=== PATIENT | female | born 1965 | race Caucasian/White ===

== ENCOUNTER 2017-04-13 13:03 | Emergency (ER) | payer OTHER ==
[2017-04-13 13:17] VITALS: BP 127/83; RESP 20; TEMP 97.8
[2017-04-13] MEDS ORDERED: ALBUTEROL/IPRATROPIUM 1 VIAL SOL INH ONE (13:24)
[2017-04-13] MEDS ORDERED: ALBUTEROL/IPRATROPIUM 1 VIAL SOL ONE (13:25)
[2017-04-13 13:36] VITALS: PULSE 104; O2SAT 98
== END 2017-04-13 13:52 | disposition home or self-care (01) ==
LOC: ED 13:03
DX: J68.0 Bronchitis and pneumonitis due to chemicals, gases, fumes and vapors (principal); T54.91XA Toxic effect of unspecified corrosive substance, accidental (unintentional), initial encounter
CPT/HCPCS: 99282; J7620

== ENCOUNTER 2018-08-21 18:07 | Emergency (ER) | payer OTHER ==
[~2018-08-21 18:07] MED LIST: [UNRECOGNIZED DRUG - OTHER] LEFTEYE SCH
[2018-08-21 18:08] VITALS: O2SAT 98
[2018-08-21] MEDS ORDERED: TETRACAINE HCL 0.5 % 1 DROP SOL ONE (18:28)
[2018-08-21 19:07] VITALS: BP 120/86; PULSE 81; RESP 18; TEMP 96.9
== END 2018-08-21 18:48 | disposition home or self-care (01) ==
LOC: ED 18:07
DX: S05.02XA Injury of conjunctiva and corneal abrasion without foreign body, left eye, initial encounter (principal)
CPT/HCPCS: 99282; A9270-GY